=== PATIENT | female | born 1975 | race Caucasian/White ===

== ENCOUNTER 2016-03-31 12:14 | Emergency (ER) | payer OTHER ==
--- NOTE | 2016-03-31 13:56 | EDDOCDS ---
Physician Documentation [facility] Name: Steph Smith Age: 41 yrs Sex: Female : 1975 Arrival Date: 03/31/2016 Time: 12:14 Bed TR8 Private MD: Luis Maldonado Disposition: 03/31/16 13:38 Discharged to Home/Self Care. Impression: Candidal stomatitis. - Condition is Stable. - Discharge Instructions: Thrush, Adult. - Prescriptions for Clotrimazole 10 mg Mucous Membrane Lionel - dissolve 1 Lionel by ORAL route 5 times per day for 14 days; 70 lozenge. - Medication Reconciliation, Local Pharmacy Hours form. - Follow up: Luis Maldonado; When: Call to arrange an appointment; Reason: Further diagnostic work-up, Recheck today's complaints, Continuance of care. - Problem is new. - Symptoms are unchanged. Historical: - Allergies: SULFA (SULFONAMIDES); - Home Meds: 1. amoxicillin 500 mg Oral cap 1 cap every 8 hours - PMHx: Asthma; sleep apnea; - PSHx: D & C (2003); Tubal ligation; - Social history: Smoking status: Patient uses tobacco products, current every day smoker. No barriers to communication noted, The patient speaks fluent Maldivian, Speaks appropriately for age. - Family history: Not pertinent. - : The pt / caregiver states he / she is not on anticoagulants. Home medication list is obtained from the patient. - Exposure Risk Screening:: None identified. 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 5 in. (165.10 cm) (R); 13:55 BP 145 / 91; Pulse 98; Resp 18; Pulse Ox 97% on R/A; kc3 12:15 Body Mass Index 41.10 (112.04 kg, 165.10 cm) dd6 MDM: 13:48 Financial registration complete. pm4 13:54 [facility] Payment Agreement was scanned into [employer] and attached to record. pm4 Signatures: Brenda Nathan, RN Angel Sandhu PA PA btw Crista Kidd PA-C PAAj dt4 Aide Little RN RN kc3 Felix Hodges, Reg Reg pm4 The chart was reviewed and I authenticate all verbal orders and agree with the evaluation and treatment provided.Corrections: (The following items were deleted from the chart) 12:23 12:15 Strep Screen, Nursing ordered. dt4 btw Attachments: 13:54 [facility] Agreement pm4 MTDD
--- NOTE | 2016-03-31 13:56 | EDDOCDS ---
Nurse's Notes [facility] Name: Steph Smith Age: 41 yrs Sex: Female : 1975 Arrival Date: 03/31/2016 Time: 12:14 Bed TR8 Private MD: Luis Maldonado Diagnosis: Candidal stomatitis Presentation: 03/31 12:17 Presenting complaint: Patient states: tongue is sore and feels like sand paper. has srm been on antibiotic for strep- amox since thurs. not feeling any better. Presenting complaint: Patient states: cant eat due to pain but is drinking fluids. Presenting complaint: Patient states: was dx with strep at [place] [facility]. Risk factors: Stridor is not present. Drooling is not present. Shortness of breath is not present. Cellulitis is not present. Adult Sepsis Screening: The patient does not have new or worsening altered mentation. Patient's respiratory rate is less than 22. Systolic blood pressure is greater than 100. Patient has a qSOFA score of 0- Negative Sepsis Screen. Suicide/Homicide risk assessment- the patient denies having any suicidal and/or homicidal ideations and does not present with any other emotional, behavioral or mental health complaints. 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 Transition of care: patient was not received from another setting of care. 12:17 Acuity: MANSOOR Level 4 srm 12:17 Method Of Arrival: Walkin/Carried/Asstd srm Triage Assessment: 12:20 General: Appears in no apparent distress, Behavior is appropriate for age, cooperative. srm Pain: Denies pain. Pain. HIV screening NA for this visit Offered previously. EENT: Reports mouth, tongue and throat are dry. 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 amoxicillin 500 mg Oral cap 1 cap every 8 hours - PMHx: Asthma; sleep apnea; - PSHx: D & C (2003); Tubal ligation; - Social history: Smoking status: Patient uses tobacco products, current every day smoker. No barriers to communication noted, The patient speaks fluent [place], Speaks appropriately for age. - Family history: Not pertinent. - : The pt / caregiver states he / she is not on anticoagulants. Home medication list is obtained from the patient. - Exposure Risk Screening:: None identified. Screenin:36 Screening information is obtained from the patient. Fall risk: No risks identified. mlb1 Assistance ADL's: requires no assistance with activities of daily living. Abuse/DV Screen: The patient / caregiver reports he/she is: not in a situation that causes fear, pain or injury. Nutritional screening: No deficits noted. Advance Directives: Currently, there is no health care proxy. home support is adequate. Assessment: 13:54 General: Appears in no apparent distress, comfortable, Behavior is appropriate for age, kc3 cooperative. Pain: Location: mouth. Neurological: No deficits noted. EENT: Throat is reddened. Respiratory: Airway is patent Respiratory effort is even, unlabored. Derm: Skin is pink, warm & dry. Vital Signs: 12:15 BP 115 / 74; Pulse 94; Resp 18 S; Temp 98.6(O); Pulse Ox 98% on R/A; Weight 112.04 kg dd6 (R); Height 5 ft. 5 in. (165.10 cm) (R); 13:55 BP 145 / 91; Pulse 98; Resp 18; Pulse Ox 97% on R/A; kc3 12:15 Body Mass Index 41.10 (112.04 kg, 165.10 cm) dd6 Vitals: 12:15 Log In Time: March 31, 2016 at 12:13. dd6 12:36 Strep Screen is obtained and tested: Positive. mlb1 ED Course: 12:15 Patient visited by Xander Javier PCA. dd6 12:15 Luis Maldonado is Private Physician. dd6 12:15 Patient moved to Waiting dd6 12:16 Patient moved to Pre RCE dd6 12:19 Triage Initiated srm 13:01 Patient moved to Triage 1 mlb1 13:10 Angel Jasso PA is PHCP. btw 13:10 Lucille Urrutia MD is Attending Physician. btw 13:10 Patient visited by Angel Jasso PA. btw 13:38 Luis Maldonado is Referral Physician. btw 13:53 Patient moved to TR8 ct3 13:54 [facility] Payment Agreement was scanned into [employer] and attached to record. pm4 13:55 No IV's were initiated during this patient's visit. No procedures done that require kc3 assistance. 13:56 The patient / caregiver is instructed regarding the plan of care and ED course. kc3 Order Results: There are currently no results for this order. Outcome: 13:38 Discharge ordered by Provider. btw 13:55 Discharge Assessment: Patient awake, alert and oriented x 3. No cognitive and/or kc3 functional deficits noted. Patient verbalized understanding of disposition instructions. patient administered narcotics - no. The following High Risk Discharge criteria are identified: None. Condition: stable. Discharge instructions given to patient, Instructed on discharge instructions, follow up and referral plans. medication usage, Demonstrated understanding of instructions, medications, Pt was receptive of discharge instructions/ teaching. Prescriptions given X 1. No special radiology studies were completed. Property :Personal belongings accompany Pt. 13:56 Patient left the ED. kc3 Signatures: Brenda Nathan, RN RN Blaise Zhou RN RN mlb1 Xander Javier, NURSE OBGYN NURSE OBGYN dd6 Angel Jasso PA PA btw Sofía Decker, NURSE OBGYN NURSE OBGYN ct3 Aide Little RN RN kc3 Felix Hodges, Reg Reg pm4 MTDD
--- NOTE | 2016-04-02 14:56 | EDDOCDS ---
Physician Documentation [facility] Name: Steph Smith Age: 41 yrs Sex: Female : 1975 Arrival Date: 03/31/2016 Time: 12:14 Bed TR8 Private MD: Luis Maldonado Disposition: 03/31/16 13:38 Discharged to Home/Self Care. Impression: Candidal stomatitis. - Condition is Stable. - Discharge Instructions: Thrush, Adult. - Prescriptions for Clotrimazole 10 mg Mucous Membrane Lionel - dissolve 1 Lionel by ORAL route 5 times per day for 14 days; 70 lozenge. - Medication Reconciliation, Local Pharmacy Hours form. - Follow up: Luis Maldonado; When: Call to arrange an appointment; Reason: Further diagnostic work-up, Recheck today's complaints, Continuance of care. - Problem is new. - Symptoms are unchanged. Historical: - Allergies: SULFA (SULFONAMIDES); - Home Meds: 1. amoxicillin 500 mg Oral cap 1 cap every 8 hours - PMHx: Asthma; sleep apnea; - PSHx: D & C (2003); Tubal ligation; - Social history: Smoking status: Patient uses tobacco products, current every day smoker. No barriers to communication noted, The patient speaks fluent Chilean, Speaks appropriately for age. - Family history: Not pertinent. - : The pt / caregiver states he / she is not on anticoagulants. Home medication list is obtained from the patient. - Exposure Risk Screening:: None identified. 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 5 in. (165.10 cm) (R); 13:55 BP 145 / 91; Pulse 98; Resp 18; Pulse Ox 97% on R/A; kc3 12:15 Body Mass Index 41.10 (112.04 kg, 165.10 cm) dd6 MDM: 13:48 Financial registration complete. pm4 13:54 [facility] Payment Agreement was scanned into [employer] and attached to record. pm4 14:38 T-Sheet-- Draft Copy was scanned into [employer] and attached to record. gb Signatures: Brenda Nathan, RN RN [facility] Crystal Anderson, Reg Reg gb Angel Jasso PA PA btw Crista Kidd PA-C PA-C dt4 Aide Little RN RN kc3 Felix Hodges, Reg Reg pm4 The chart was reviewed and I authenticate all verbal orders and agree with the evaluation and treatment provided.Corrections: (The following items were deleted from the chart) 12:23 12:15 Strep Screen, Nursing ordered. dt4 btw Attachments: 13:54 [facility] [place] pm4 14:38 T-Sheet-- Draft Copy gb Chart Complete MTDD
--- NOTE | 2016-04-02 14:56 | EDDOCDS ---
Physician Documentation [facility] Name: Steph Smith Age: 41 yrs Sex: Female : 1975 Arrival Date: 03/31/2016 Time: 12:14 Bed TR8 Private MD: Luis Maldonado Disposition: 03/31/16 13:38 Discharged to Home/Self Care. Impression: Candidal stomatitis. - Condition is Stable. - Discharge Instructions: Thrush, Adult. - Prescriptions for Clotrimazole 10 mg Mucous Membrane Lionel - dissolve 1 Lionel by ORAL route 5 times per day for 14 days; 70 lozenge. - Medication Reconciliation, Local Pharmacy Hours form. - Follow up: Luis Maldonado; When: Call to arrange an appointment; Reason: Further diagnostic work-up, Recheck today's complaints, Continuance of care. - Problem is new. - Symptoms are unchanged. Historical: - Allergies: SULFA (SULFONAMIDES); - Home Meds: 1. amoxicillin 500 mg Oral cap 1 cap every 8 hours - PMHx: Asthma; sleep apnea; - PSHx: D & C (2003); Tubal ligation; - Social history: Smoking status: Patient uses tobacco products, current every day smoker. No barriers to communication noted, The patient speaks fluent Italian, Speaks appropriately for age. - Family history: Not pertinent. - : The pt / caregiver states he / she is not on anticoagulants. Home medication list is obtained from the patient. - Exposure Risk Screening:: None identified. 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 5 in. (165.10 cm) (R); 13:55 BP 145 / 91; Pulse 98; Resp 18; Pulse Ox 97% on R/A; kc3 12:15 Body Mass Index 41.10 (112.04 kg, 165.10 cm) dd6 MDM: 13:48 Financial registration complete. pm4 13:54 [facility] Payment Agreement was scanned into STARFACE and attached to record. pm4 14:38 T-Sheet-- Draft Copy was scanned into STARFACE and attached to record. gb Signatures: Brneda Nathan, RN RN [facility] Crystal Anderson, Reg Reg gb Angel Jasso PA PA btw Crista Kidd PA-C PA-C dt4 Aide Little RN RN kc3 Felix Hodges, Reg Reg pm4 The chart was reviewed and I authenticate all verbal orders and agree with the evaluation and treatment provided.Corrections: (The following items were deleted from the chart) 12:23 12:15 Strep Screen, Nursing ordered. dt4 btw Attachments: 13:54 [facility] [place] Payment Agreement pm4 14:38 T-Sheet-- Draft Copy gb Chart Complete MTDD
--- NOTE | 2016-04-02 14:56 | EDDOCDS ---
Nurse's Notes [facility] Name: Steph Smith Age: 41 yrs Sex: Female : 1975 Arrival Date: 03/31/2016 Time: 12:14 Bed TR8 Private MD: Luis Maldonado Diagnosis: Candidal stomatitis Presentation: 03/31 12:17 Presenting complaint: Patient states: tongue is sore and feels like sand paper. has srm been on antibiotic for strep- amox since thurs. not feeling any better. Presenting complaint: Patient states: cant eat due to pain but is drinking fluids. Presenting complaint: Patient states: was dx with strep at [place] [facility]. Risk factors: Stridor is not present. Drooling is not present. Shortness of breath is not present. Cellulitis is not present. Adult Sepsis Screening: The patient does not have new or worsening altered mentation. Patient's respiratory rate is less than 22. Systolic blood pressure is greater than 100. Patient has a qSOFA score of 0- Negative Sepsis Screen. Suicide/Homicide risk assessment- the patient denies having any suicidal and/or homicidal ideations and does not present with any other emotional, behavioral or mental health complaints. 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 Transition of care: patient was not received from another setting of care. 12:17 Acuity: MANSOOR Level 4 srm 12:17 Method Of Arrival: Walkin/Carried/Asstd srm Triage Assessment: 12:20 General: Appears in no apparent distress, Behavior is appropriate for age, cooperative. srm Pain: Denies pain. Pain. HIV screening NA for this visit Offered previously. EENT: Reports mouth, tongue and throat are dry. 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 amoxicillin 500 mg Oral cap 1 cap every 8 hours - PMHx: Asthma; sleep apnea; - PSHx: D & C (2003); Tubal ligation; - Social history: Smoking status: Patient uses tobacco products, current every day smoker. No barriers to communication noted, The patient speaks fluent [place], Speaks appropriately for age. - Family history: Not pertinent. - : The pt / caregiver states he / she is not on anticoagulants. Home medication list is obtained from the patient. - Exposure Risk Screening:: None identified. Screenin:36 Screening information is obtained from the patient. Fall risk: No risks identified. mlb1 Assistance ADL's: requires no assistance with activities of daily living. Abuse/DV Screen: The patient / caregiver reports he/she is: not in a situation that causes fear, pain or injury. Nutritional screening: No deficits noted. Advance Directives: Currently, there is no health care proxy. home support is adequate. Assessment: 13:54 General: Appears in no apparent distress, comfortable, Behavior is appropriate for age, kc3 cooperative. Pain: Location: mouth. Neurological: No deficits noted. EENT: Throat is reddened. Respiratory: Airway is patent Respiratory effort is even, unlabored. Derm: Skin is pink, warm & dry. Vital Signs: 12:15 BP 115 / 74; Pulse 94; Resp 18 S; Temp 98.6(O); Pulse Ox 98% on R/A; Weight 112.04 kg dd6 (R); Height 5 ft. 5 in. (165.10 cm) (R); 13:55 BP 145 / 91; Pulse 98; Resp 18; Pulse Ox 97% on R/A; kc3 12:15 Body Mass Index 41.10 (112.04 kg, 165.10 cm) dd6 Vitals: 12:15 Log In Time: March 31, 2016 at 12:13. dd6 12:36 Strep Screen is obtained and tested: Positive. mlb1 ED Course: 12:15 Patient visited by Xander Javier PCA. dd6 12:15 Luis Maldonado is Private Physician. dd6 12:15 Patient moved to Waiting dd6 12:16 Patient moved to Pre RCE dd6 12:19 Triage Initiated srm 13:01 Patient moved to Triage 1 mlb1 13:10 Angel Jasso PA is PHCP. btw 13:10 Lucille Urrutia MD is Attending Physician. btw 13:10 Patient visited by Angel Jasso PA. btw 13:38 Luis Maldonado is Referral Physician. btw 13:53 Patient moved to TR8 ct3 13:54 [facility] Payment Agreement was scanned into [employer] and attached to record. pm4 13:55 No IV's were initiated during this patient's visit. No procedures done that require kc3 assistance. 13:56 The patient / caregiver is instructed regarding the plan of care and ED course. kc3 14:38 T-Sheet-- Draft Copy was scanned into [employer] and attached to record. gb Order Results: There are currently no results for this order. Outcome: 13:38 Discharge ordered by Provider. btw 13:55 Discharge Assessment: Patient awake, alert and oriented x 3. No cognitive and/or kc3 functional deficits noted. Patient verbalized understanding of disposition instructions. patient administered narcotics - no. The following High Risk Discharge criteria are identified: None. Condition: stable. Discharge instructions given to patient, Instructed on discharge instructions, follow up and referral plans. medication usage, Demonstrated understanding of instructions, medications, Pt was receptive of discharge instructions/ teaching. Prescriptions given X 1. No special radiology studies were completed. Property :Personal belongings accompany Pt. 13:56 Patient left the ED. kc3 Signatures: Brenda Nathan, RN RN [facility] Crystal Anderson, Reg Reg gb Blaise Rolle RN RN mlb1 Xander Javier, FOOD SERVICE SPECIALIST FOOD SERVICE SPECIALIST dd6 Angel Jasso PA PA btw Sofía Decker, FOOD SERVICE SPECIALIST FOOD SERVICE SPECIALIST ct3 Aide LittleRN RN kc3 Felix Hodges, Reg Reg pm4 Chart Complete MTDD
== END 2016-03-31 13:56 | disposition home or self-care (01) ==
LOC: M ED 12:14
DX: B37.0 Candidal stomatitis (principal); J45.909 Unspecified asthma, uncomplicated; G47.30 Sleep apnea, unspecified; Z79.2 Long term (current) use of antibiotics; Z88.2 Allergy status to sulfonamides; F17.210 Nicotine dependence, cigarettes, uncomplicated

== ENCOUNTER 2016-10-19 17:29 | Emergency (ER) | payer OTHER ==
[~2016-10-19] VITALS: Ht 165.1 cm; Wt 118.6 kg
[2016-10-19] MEDS ORDERED: NICO21DI31 (17:47)
[2016-10-19] MEDS ORDERED: FLON1SPR (17:47)
[2016-10-19] MEDS ORDERED: ZANA4TAB PO (17:47)
[2016-10-19] MEDS ORDERED: [UNRECOGNIZED DRUG - CODE] (17:47)
[2016-10-19] MEDS ORDERED: ZYRT10CA PO (17:47)
[2016-10-19] MEDS ORDERED: NS 1,000 ML IV ONE (18:30)
[2016-10-19] MEDS ORDERED: MORPHINE 4 MG/ML 1ML SYRINGE IV ONE (18:30)
[2016-10-19] MEDS ORDERED: ONDANSETRON 4MG/2ML VIAL (J2405) IV ONE (18:30)
[2016-10-19 18:43] LABS: BASO # 0.1 K/mm3 (0.0-0.2); EOS # 0.3 K/mm3 (0.0-0.50); EOS % 3.9 % (0.0-3.0); LARGE UNSTAINED CELL # 0.1 K/mm3 (0.0-0.4); LARGE UNSTAINED CELL % 1.6 % (0.0-4.0); LYMPH # 2.8 K/mm3 (1.5-4.5); MEAN CORPUSCULAR HEMOGLOBIN 30.6 pg (27.0-33.0); MEAN CORPUSCULAR HGB CONC 33.7 g/dl (32.0-36.5); MEAN CORPUSCULAR VOLUME 90.6 fl (80.0-96.0); MONO # 0.5 K/mm3 (0.0-0.8); MONO % 7.3 % (0.0-5.0); NEUTROPHILS # 3.7 K/mm3 (1.8-7.7); NEUTROPHILS % 50.3 % (36.0-66.0); PLATELET COUNT, AUTOMATED 274 k/mm3 (150-450); RED CELL DISTRIBUTION WIDTH 13.9 % (11.5-14.5); WHITE BLOOD COUNT 7.4 K/mm3 (4.0-10.0)
[2016-10-19 19:14] LABS: CONTROL LINE HCG INT CTR LINE PRESENT
[2016-10-19 19:17] LABS: ALBUMIN 3.9 GM/DL (3.2-5.2); ALBUMIN/GLOBULIN RATIO 1.05 (1.00-1.93); ALKALINE PHOSPHATASE 107 U/L (45-117); ALT/SGPT 48 U/L (12-78); AMYLASE 45 U/L (25-115); ANION GAP 5 MEQ/L (8-16); AST/SGOT 23 U/L (15-37); BILIRUBIN,DIRECT < 0.1 MG/DL (0.0-0.2); BILIRUBIN,TOTAL 0.3 MG/DL (0.2-1.0); BLOOD UREA NITROGEN 7 MG/DL (7-18); CALCIUM LEVEL 9.2 MG/DL (8.5-10.1); CARBON DIOXIDE LEVEL 27 MEQ/L (21-32); CHLORIDE LEVEL 107 MEQ/L (98-107); CREATININE FOR GFR 0.64 MG/DL (0.55-1.02); GLOMERULAR FILTRATION RATE > 60.0 (>58); GLUCOSE, FASTING 84 MG/DL (70-105); POTASSIUM SERUM 3.8 MEQ/L (3.5-5.1); SODIUM LEVEL 139 MEQ/L (136-145); TOTAL PROTEIN 7.6 GM/DL (6.4-8.2)
[2016-10-19] MEDS ORDERED: ISOVUE-370 76% 100ML VIAL (Q9967) As Ordered ONE (19:19)
--- NOTE | 2016-10-19 19:50 | REPUSA ---
CT of the abdomen and pelvis with contrast Clinical statement: Pain. Left inguinal mass. Technique: Multiple axial CT images were obtained from the base of the lungs through the floor of the pelvis utilizing 5 mm axial slices after administration of nonionic intravenous contrast. Coronal an d sagittal reconstructions were also obtained. No comparison is available. Findings: Chest: The visualized lung bases are clear. Abdomen: The spleen, pancreas, kidneys, gallbladder, and adrenal glands are unremarkable. The liver i s enlarged, measuring 25.8 cm. The aorta is within normal limits. There is no evidence of abdominal l ymphadenopathy or ascites. Pelvis: The bowel is unremarkable, with no obstructive or inflammatory changes. The urinary bladder i s within normal limits. The other pelvic structures appear grossly intact. There is no evidence of pe lvic lymphadenopathy or ascites. Bones: There are no suspicious osseous abnormalities seen. Impression: Unremarkable CT examination of the abdomen and pelvis.
[2016-10-19] MEDS ORDERED: ZOFR4TAB3 PO (20:13)
[2016-10-19 20:17] VITALS: BP 115/76
== END 2016-10-19 20:24 | disposition home or self-care (01) ==
LOC: M ED 17:29
DX: R10.32 Left lower quadrant pain (principal); J45.909 Unspecified asthma, uncomplicated; M54.5 Low back pain; F41.9 Anxiety disorder, unspecified; R56.9 Unspecified convulsions; F17.210 Nicotine dependence, cigarettes, uncomplicated; Z88.2 Allergy status to sulfonamides; Z79.899 Other long term (current) drug therapy
CPT/HCPCS: 74177; 80048; 80076; 81025; 82150; 83605; 83690; 84703; 85025; 96361; 96374; 96375; 99283; J2405; Q9967